=== PATIENT | female | born 1980 | race Caucasian/White ===

== ENCOUNTER → 2017-05-11 | Outpatient (CLI) | payer BC ==
[2014-03-28 22:20] VITALS: BP 113/76
--- NOTE | 2017-05-12 08:23 | RAD ---
Indication: Twisting injury, pain. Technique: 3 views of the right ankle are submitted for review. No comparison is available. Findings: There is no fracture or dislocation. There is no soft tissue swelling. Impression: Negative for fracture.
--- NOTE | 2017-05-12 08:24 | RAD ---
Indication: Twisting injury, pain. Attention to the fifth digit. Technique: 3 views of the right foot are submitted for review. No comparison is available. Findings: There is no fracture or dislocation. There is no soft tissue swelling. Impression: Negative for fracture.
== END | disposition home or self-care (01) ==
LOC: RAD 17:36
PROVIDERS: ATTEND General Practice
DX: S93.601A Unspecified sprain of right foot, initial encounter (principal); X58.XXXA Exposure to other specified factors, initial encounter; Y93.89 Activity, other specified; Y92.89 Other specified places as the place of occurrence of the external cause; Y99.8 Other external cause status
CPT/HCPCS: 73610; 73630

== ENCOUNTER 2018-06-22 10:30 | Emergency (ER) | payer BC ==
[~2018-06-22] VITALS: Ht 160 cm; Wt 52.7 kg
[2018-06-22] MEDS: IV NORMAL SALINE 1,000ML 1,000 ML IV SCH (11:22)
[2018-06-22] MEDS: MORPHINE SULFATE 4 MG/ML DISP.SYRIN. IV ONE (11:23)
[2018-06-22 11:29] LABS: BASO % 1 % (0-3); EOS % 0 % (0-3); HEMATOCRIT 46.5 % (36.0-47.0); HEMOGLOBIN 15.8 g/dL (12.0-15.5); LYMPH # 0.6 x10^3/uL (1.0-4.8); LYMPH % 6 % (24-48); MEAN CORPUSCULAR HEMOGLOBIN 32 pg (25-35); MEAN CORPUSCULAR HGB CONC 34 g/dL (31-37); MEAN CORPUSCULAR VOLUME 95 fL (79-100); MONO # 0.8 x10^3/uL (0.0-1.1); MONO % 8 % (0-9); NEUT # 8.4 x10^3uL (1.8-7.7); NEUT % 85 % (31-73); PLATELET COUNT 171 x10^3/uL (140-400); RED BLOOD COUNT 4.92 x10^6/uL (3.50-5.40); RED CELL DISTRIBUTION WIDTH 15.2 % (11.5-14.5); WHITE BLOOD COUNT 9.8 x10^3/uL (4.0-11.0)
[2018-06-22 11:35] LABS: AMPHETAMINE/METHAMPHETAMINE NEG (NEG); BARBITURATES NEG (NEG); BENZODIAZEPINES NEG (NEG); CANNABINOIDS POS (NEG); COCAINE NEG (NEG); METHADONE NEG (NEG); OPIATES POS (NEG); PHENCYCLIDINE NEG (NEG)
[2018-06-22 11:42] LABS: ALBUMIN/GLOBULIN RATIO 1.2 (1.0-1.7); CREATININE 1.1 mg/dL (0.6-1.0); GFR 56.2; POTASSIUM 3.1 mmol/L (3.5-5.1); PREG TEST PT QUAL NEGATIVE (NEG); TOTAL BILIRUBIN 1.4 mg/dL (0.2-1.0); TOTAL PROTEIN 7.4 g/dL (6.4-8.2)
[2018-06-22 11:43] LABS: CLARITY,URINE CLOUDY; COLOR,URINE BROWN
[2018-06-22 11:44] LABS: BACTERIA,URINE MANY /HPF (0-FEW); SQUAMOUS EPITHELIAL CELL,UR MOD /LPF; WBC,URINE >40 /HPF (0-4)
[2018-06-22] MEDS ORDERED: cefTRIAXone SODIUM 1 GM VIAL IV ONE (12:29)
[2018-06-22] MEDS ORDERED: IV NORMAL SALINE 50ML 50 ML ONE (12:29)
[2018-06-22] MEDS: POTASSIUM CHLORIDE 20 MEQ TABLET.ER. PO ONE (12:35)
[2018-06-22] MEDS ORDERED: CIPR250T30 PO (12:45)
[2018-06-22] MEDS ORDERED: HYDR-3165 PO (12:45)
[2018-06-22] MEDS ORDERED: NAPR-683 PO (12:45)
--- NOTE | 2018-06-22 12:45 | PHYS DOC ---
Past History Past Medical History: Depression, Endometriosis, Other Past Surgical History: Other Smoking: Cigarettes Alcohol Use: Occasionally Drug Use: Marijuana Adult General Chief Complaint Chief Complaint: ABDOMINAL PAIN HPI HPI Patient is a 37 year old female who presents with complaining of left lower quadrant pain for 4 days. Patient complaining of sudden onset of left lower quadrant pain 4 days ago after intercourse as a constant pain that getting during urination. Patient states the pain radiated to her back and rated her pain 10/10. Patient complaining of urinary frequency and dysuria with decrease of urine output. Patient also complaining of foul-smelling vaginal discharge without vaginal bleeding. Patient states her LMP was June 05 and is concern for possible . Patient denies vomiting, diarrhea, constipation, new sexual partner, history of the same problem. Review of Systems Review of Systems Constitutional: Denies fever , reports chills [] Eyes: Denies change in visual acuity, redness, or eye pain [] HENT: Denies nasal congestion or sore throat [] Respiratory: Denies cough or shortness of breath [] Cardiovascular: No additional information not addressed in HPI [] GI: Reports abdominal pain, nausea, denies vomiting, bloody stools or diarrhea [ ] : Reports dysuria and frequency Musculoskeletal: Denies back pain or joint pain [] Integument: Denies rash or skin lesions [] Neurologic: Denies headache, focal weakness or sensory changes [] Endocrine: Denies polyuria or polydipsia [] All other systems were reviewed and found to be within normal limits, except as documented in this note. Current Medications Current Medications Current Medications Medications (Trade) Dose Ordered Sig/[facility] Start Time Stop Time Status Last Admin Dose Admin Ceftriaxone Sodium 1 gm/ Sodium Chloride 50 ml @ 100 mls/hr 1X ONCE 06/22/18 12:30 06/22/18 12:59 Ceftriaxone Sodium (Rocephin) 1 gm STK-MED ONCE 06/22/18 12:29 06/22/18 12:31 DC Morphine Sulfate (Morphine 4mg Syringe) 4 mg 1X ONCE 06/22/18 11:15 06/22/18 11:16 DC 06/22/18 11:23 4 MG Potassium Chloride (Klor-Con) 40 meq 1X ONCE 06/22/18 12:30 06/22/18 12:31 DC Sodium Chloride 50 ml @ As Directed STK-MED ONCE 06/22/18 12:29 06/22/18 12:31 DC Allergies Allergies Allergies Coded Allergies Type Severity Reaction Last Updated Verified No Known Drug Allergies 03/28/14 No Physical Exam Physical Exam Constitutional: Well nourished, moderate distress, non-toxic appearance. [] HENT: Normocephalic, atraumatic, oropharynx dry, no oral exudates, nose normal. [] Eyes: PERRLA, EOMI, conjunctiva normal, no discharge. [] Neck: Normal range of motion, no tenderness, supple, no stridor. [] Cardiovascular: Tachycardia, no murmur [] Lungs & Thorax: Bilateral breath sounds clear to auscultation [] Abdomen: Bowel sounds normal, soft, no tenderness, left lower quadrant guarding , no masses, no pulsatile masses. 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 Skin: Warm, dry, no erythema, no rash. [] Back: No tenderness, left CVA tenderness. [] Extremities: No tenderness, no cyanosis, no clubbing, ROM intact, no edema. [] Neurologic: Alert and oriented X 3, normal motor function, normal sensory function, no focal deficits noted. [] Psychologic: Affect anxious, judgement normal, mood normal. [] Current Patient Data Vital Signs Vital Signs Date Time Temp Pulse Resp B/P (MAP) Pulse Ox O2 Delivery O2 Flow Rate FiO2 06/22/18 11:23 24 94 Room Air 06/22/18 10:30 98.5 126 Lab Results Laboratory Tests Test 06/22/18 10:40 06/22/18 11:15 Urine Collection Type Unknown Urine Color Brown Urine Clarity Cloudy Urine pH 5.0 Urine Specific [place] <=1.005 Urine Protein (NEG-TRACE) Urine Glucose (UA) mg/dL (NEG) Urine Ketones (Stick) mg/dL (NEG) Urine Blood (NEG) Urine Nitrite (NEG) Urine Bilirubin (NEG) Urine Urobilinogen Dipstick mg/dL (0.2 mg/dL) Urine Leukocyte Esterase (NEG) Urine RBC 3-5 /HPF (0-2) Urine WBC >40 /HPF (0-4) Urine Squamous Epithelial Cells Mod /LPF Urine Bacteria Many /HPF (0-FEW) Urine Mucus Slight /LPF Urine Opiates Screen Pos (NEG) Urine Methadone Screen Neg (NEG) Urine Barbiturates Neg (NEG) Urine Phencyclidine Screen Neg (NEG) Urine Amphetamine/Methamphetamine Neg (NEG) Urine Benzodiazepines Screen Neg (NEG) Urine Cocaine Screen Neg (NEG) Urine Cannabinoids Screen Pos (NEG) Urine Ethyl Alcohol Neg (NEG) White Blood Count 9.8 x10^3/uL (4.0-11.0) Red Blood Count 4.92 x10^6/uL (3.50-5.40) Hemoglobin 15.8 g/dL (12.0-15.5) H Hematocrit 46.5 % (36.0-47.0) Mean Corpuscular Volume 95 fL (79-100) Mean Corpuscular Hemoglobin 32 pg (25-35) Mean Corpuscular Hemoglobin Concent 34 g/dL (31-37) Red Cell Distribution Width 15.2 % (11.5-14.5) H Platelet Count 171 x10^3/uL (140-400) Neutrophils (%) (Auto) 85 % (31-73) H Lymphocytes (%) (Auto) 6 % (24-48) L Monocytes (%) (Auto) 8 % (0-9) Eosinophils (%) (Auto) 0 % (0-3) Basophils (%) (Auto) 1 % (0-3) Neutrophils # (Auto) 8.4 x10^3uL (1.8-7.7) H Lymphocytes # (Auto) 0.6 x10^3/uL (1.0-4.8) L Monocytes # (Auto) 0.8 x10^3/uL (0.0-1.1) Eosinophils # (Auto) 0.0 x10^3/uL (0.0-0.7) Basophils # (Auto) 0.0 x10^3/uL (0.0-0.2) Sodium Level 138 mmol/L (136-145) Potassium Level 3.1 mmol/L (3.5-5.1) L Chloride Level 99 mmol/L (98-107) Carbon Dioxide Level 28 mmol/L (21-32) Anion Gap 11 (6-14) Blood Urea Nitrogen 8 mg/dL (7-20) Creatinine 1.1 mg/dL (0.6-1.0) H Estimated GFR (Cockcroft-Gault) 56.2 BUN/Creatinine Ratio 7 (6-20) Glucose Level 100 mg/dL (70-99) H Lactic Acid Level 1.4 mmol/L (0.4-2.0) Calcium Level 9.0 mg/dL (8.5-10.1) Total Bilirubin 1.4 mg/dL (0.2-1.0) H Aspartate Amino Transferase (AST) 13 U/L (15-37) L Alanine Aminotransferase (ALT) 16 U/L (14-59) Alkaline Phosphatase 68 U/L (46-116) Total Protein 7.4 g/dL (6.4-8.2) Albumin 4.0 g/dL (3.4-5.0) Albumin/Globulin Ratio 1.2 (1.0-1.7) Lipase 51 U/L (73-393) L Serum Test, Qualitative Negative (NEG) Microbiology 06/22/18 Wet Prep - Final, Complete EKG EKG [] Radiology/Procedures Radiology/Procedures [] Course & Med Decision Making Course & Med Decision Making Pertinent Labs reviewed. (See chart for details) Evaluation of patient in ER showed 27-year-old female patient with complaining of vaginal discharge and urinary frequency and dysuria and left lower quadrant pain. Patient had tachycardia and anxiety without fever. Patient had more than 40 WBC in urine. Vaginal exam showed WBC. Treated with IV fluid, pain medication, Rocephin, oral potassium and felt better. Prescription for Cipro, [place] and Naprosyn was given and patient instructed to follow up with her primary care physician. discharge: I've spoken with the patient and/or caregivers. I've explained the patient's condition, diagnosis and treatment plan based on information available to me at this time. I've answered the patient's and/or caregivers questions and addressed any concerns. The patient and/or caregivers have a good understanding the patient's diagnosis, condition and treatment plan as can be expected at this point. Vital signs have been stabilized. The patient's condition is stable for discharge from the emergency department. The patient will pursue further outpatient evaluation with her primary care provider or other designated consulting physician as outlined in the discharge instructions. Patient and/or caregivers are agreeable to this plan of care and follow-up instructions have been explained in detail. The patient and/or caregivers have received these instructions in written format and expressed understanding of these discharge instructions. The patient and her caregivers are aware that if any significant change in condition or worsening of symptoms should prompt him to immediately return to this of the closest emergency department. If an emergent department is not readily available I would encourage him to call 911. Rupert Disclaimer Dragon Disclaimer This electronic medical record was generated, in whole or in part, using a voice recognition dictation system. Departure Departure: Impression: Primary Impression: Pyelonephritis Additional Impressions: Hypokalemia Vaginitis Urinary tract infection Marijuana abuse Tobacco abuse Tobacco abuse counseling Anxiety Dehydration Disposition: HOME, SELF-CARE (at 1236) Condition: IMPROVED Referrals: PRISCILA DEL REAL (PCP) Patient Instructions: Hypokalemia, Pyelonephritis, Adult Additional Instructions: Drink plenty of liquids Follow-up with your primary care physician in 3-5 days Return to ER if not getting better Scripts Hydrocodone Bit/Acetaminophen (NORCO 5-325 TABLET) 1 Each Tablet 1 TAB PO PRN Q6HRS PRN for PAIN, #10 TAB 0 Refills Prov: EVELYN DAWN MD 06/22/18 Naproxen (NAPROSYN) 500 Mg Tablet 500 MG PO BID for pain, #20 TAB Prov: EVELYN DAWN MD 06/22/18 Ciprofloxacin Hcl (CIPRO) 250 Mg Tablet 1 TAB PO BID for urinary tract infection, #14 TAB Prov: EVELYN DAWN MD 06/22/18 Problem Qualifiers EVELYN DAWN MD Jun 22, 2018 12:45
[2018-06-22 13:43] VITALS: BP 132/89
[2018-06-23 13:10] LABS: CHLAMYDIA PROBE Negative (Negative)
== END 2018-06-22 13:43 | disposition home or self-care (01) ==
LOC: ER 10:30
DX: N12 Tubulo-interstitial nephritis, not specified as acute or chronic (principal); E87.6 Hypokalemia; N76.0 Acute vaginitis; E86.0 Dehydration; F41.9 Anxiety disorder, unspecified; F12.10 Cannabis abuse, uncomplicated; F17.210 Nicotine dependence, cigarettes, uncomplicated; Z71.6 Tobacco abuse counseling
CPT/HCPCS: 36415; 80053; 80307; 81001; 83605; 83690; 84703; 85025; 87491; 87591; 96365; 96375; 99283; J0696; J2270; Q0111; 87086; 87186; J7030

== ENCOUNTER 2020-02-19 06:55 | Emergency (ER) | payer BC ==
[~2020-02-19] VITALS: Ht 160 cm; Wt 55.7 kg
[~2020-02-19 06:55] MED LIST: CIPR250T30 PO; HYDR-3165 PO; NAPR-683 PO
[2020-02-19] MEDS ORDERED: METOCLOPRAMIDE HCL 10 MG/2 ML VIAL. ONE (07:28)
[2020-02-19] MEDS ORDERED: FAMOTIDINE 20 MG/2 ML VIAL ONE (07:28)
[2020-02-19] MEDS ORDERED: FAMOTIDINE 20 MG/2 ML VIAL IVP ONE (07:30)
[2020-02-19] MEDS ORDERED: METOCLOPRAMIDE HCL 10 MG/2 ML VIAL. IVP ONE (07:30)
[2020-02-19] MEDS ORDERED: IV NORMAL SALINE 1,000ML 1,000 ML IV ONE (07:30)
--- NOTE | 2020-02-19 07:30 | PHYS DOC ---
Past History Past Medical History: Depression, Endometriosis, Other Past Surgical History: Other Smoking: Cigarettes Alcohol Use: Occasionally Drug Use: Marijuana General Adult EDM: Chief Complaint: ABDOMINAL PAIN HPI: HPI: 39-year-old female past medical history significant for endometriosis, hemorrhage and preeclampsia, presents to the ED with complaints of epigastric sharp abdominal pain worsening over the past 2 months with associated nausea and nonbloody nonbilious vomiting, food makes her symptoms worse. States she hasn't been able to eat much and both her mom/grandmother have had their gallbladders removed. States pain is similar to the pressure she felt when baby pressed up on her stomach. Drinks alcohol and smokes marijuana daily. No h/o covid. Last menstrual period was February 07. Relief with warm baths/hot showers. H/o urethral stent 2/2 frequent UTIs (has been removed). Review of Systems: Review of Systems: Constitutional: Denies fever or chills Eyes: Denies change in visual acuity HENT: Denies nasal congestion or sore throat Respiratory: Denies cough or shortness of breath or hemoptysis Cardiovascular: Denies chest pain or edema GI: Denies melena, hematemesis or diarrhea : Denies dysuria Musculoskeletal: Denies back pain or joint pain Integument: Denies rash Neurologic: Denies headache, focal weakness or sensory changes, neck stiffness Endocrine: Denies polyuria or polydipsia or hematuria Lymphatic: Denies swollen glands Psychiatric: Denies depression or anxiety Heart Score: Risk Factors: Risk Factors: DM, Current or recent (<one month) smoker, HTN, HLP, family history of CAD, obesity. Risk Scores: Score 0 - 3: 2.5% MACE over next 6 weeks - Discharge Home Score 4 - 6: 20.3% MACE over next 6 weeks - Admit for Clinical Observation Score 7 - 10: 72.7% MACE over next 6 weeks - Early Invasive Strategies Allergies: Allergies: Allergies Coded Allergies Type Severity Reaction Last Updated Verified No Known Drug Allergies 03/28/14 No Physical Exam: PE: Constitutional: Well developed, well nourished, no acute distress, non-toxic appearance, thin HENT: Normocephalic, atraumatic, Eyes: EOMI, conjunctiva normal, no discharge. [] Neck: Normal range of motion, supple, Cardiovascular: tachycardic and hypertensive, no murmur [] Lungs & Thorax: Bilateral breath sounds clear to auscultation [] Abdomen: Bowel sounds normal, soft, +murphys sign and epigastric ttp, no pain at mcburneys, no rovsing sign, no masses, no pulsatile masses. [] Skin: Warm, dry, no erythema, no rash. [] Back: No tenderness, no CVA tenderness. [] Extremities: No tenderness, no cyanosis, no clubbing, ROM intact, no edema. [] Neurologic: Alert and oriented X 3, normal motor function, normal sensory function, no focal deficits noted. [] Psychologic: Affect normal, judgement normal, mood normal. [] EKG: EKG: Sinus rhythm at 98 bpm, no axis deviation, normal intervals, no T wave inversions, no ST elevations or ST depressions Radiology/Procedures: Radiology/Procedures: IMAGING REPORT Signed PATIENT: ADINA PURCELL LACCOUNT: [id number] : 1980 LOCATION: ER AGE: 39 SEX: F EXAM STATUS: REG ER ORD. PHYSICIAN: JOCELINE VAZQUEZ DO REASON: ruq and epigastric pain, n/v PROCEDURE: ABDOMEN LTD CLINICAL HISTORY: Right upper quadrant and epigastric pain. Nausea, vomiting. COMPARISON: None available. TECHNIQUE: Limited ultrasound examination of the right upper quadrant of the abdomen was performed FINDINGS: Visualized portions of the pancreas are unremarkable. Liver: The liver measures 13.9 cm in length in the right mid clavicular line. The hepatic margin is smooth and the hepatic echogenicity is normal. In the left hepatic lobe, there is an echogenic 2.6 x 1.9 cm lesion which may represent a hemangioma. Portal venous flow is confirmed. Gallbladder/Biliary: The gallbladder is normal in appearance without evidence for cholelithiasis. There is no wall thickening or pericholecystic fluid. There is no pain with direct transducer pressure over the gallbladder.The common bile duct measures 0.5 cm. The right kidney measures 11.6 cm in bipolar length. No hydronephrosis. Normal renal cortical echotexture. Right upper pole renal cyst measures 7 mm. There is no free fluid in the subhepatic space. IMPRESSION: 1. Left hepatic lobe echogenic lesion is favored to represent hemangioma. 2. Gallbladder is sonographically normal. No evidence for acute cholecystitis. Electronically signed by: Layton Walker MD (02/19/2020 8:17 AM) [id number] DICTATED AND SIGNED BY: LAYTON WALKER MD DATE: 02/19/20816 CC: PRISCILA DEL REAL; JOCELINE VAZQUEZ DO ~ Course & Med Decision Making: Course & Med Decision Making Pertinent Labs and Imaging studies reviewed. (See chart for details) Concern for upper abdominal pain in the setting of nausea and nonbloody nonbilious vomiting. Patient presented tachycardic and hypertensive but improved with IV fluids and medications. Ultrasound shows no sonographic evidence of cholecystitis. Patient is afebrile, well appearing and in no distress. Labs with no leukocytosis, troponin, lipase and electrolytes within normal limits. Renal function is same as prior. hCG negative. Urinalysis w/no infection. Urine drug screen positive for thc. Broad differential given location of pain. Strict ED return precautions were given for severe worsening pain, dehydration or fever. Encouraged urgent outpatient follow-up with PMD and GI for endoscopy. Life-threatening processes were considered but are low suspicion at this time, given history and physical exam. Pt was educated on all prescription medications and adverse effects. All patient's questions were answered and pt was stable at time of discharge. Differential includes aortic dissection, aortic aneurysm, acute coronary syndrome, surgical abdomen (appendicitis, cholecystitis, ischemic bowel, strangulated hernia, etc), bowel obstruction or volvulus, bladder outlet obstruction, gastrointestinal bleeding, inflammatory bowel disease, peptic ulcer disease, sepsis, diverticular disease, ureterolithiasis, nephrolithiasis, ovarian or testicular torsion, ectopic , vaginal hemorrhage of infection I spoken with the patient and her caregivers. I explained the patient's condition, diagnoses and treatment plan based on the information available to me at this time. I have answered the patient and her caregiver's questions and addressed any concerns. The patient and her caregivers have a good understanding of patient's diagnosis, condition and treatment plan as can be expected at this point. Vital signs have been stable. Patient's condition is stable and appropriate for discharge from the emergency department. Patient will pursue further outpatient evaluation with primary care physician or other designated or consulting physician as outlined in the discharge instructions. The patient and/or caregivers are agreeable to this plan of care and follow-up instructions have been explained in detail. The patient and/or caregivers have received these instructions in written form and have expressed an understanding of the discharge instructions. The patient and/or caregivers are aware that any significant change of condition or worsening of symptoms should prompt immediate return to this or the closest emergency department or call to 911. Rupert Disclaimer: Dragon Disclaimer: This electronic medical record was generated, in whole or in part, using a voice recognition dictation system. Departure Departure: Impression: Primary Impression: Epigastric abdominal pain Additional Impression: Nausea & vomiting Disposition: 01 HOME/RESIDENCE PRIOR TO ADM Condition: STABLE Referrals: PRISCILA DEL REAL (PCP) Patient Instructions: Abdominal Pain, Marijuana Abuse-Brief, Nausea and Vomiting Additional Instructions: Gastroenterology [facility] Dr. Dick or Dr. Whitaker [address], [address], [place] [address] Scripts Metoclopramide Hcl (REGLAN) 10 Mg Tablet 1 TAB PO QID for nausea/vomiting for 7 Days, #28 TAB 0 Refills before food and bedtime Prov: JOCELINE VAZQUEZ DO 02/19/20 Famotidine (PEPCID) 20 Mg Tablet 1 TAB PO BID for epigastric pain for 14 Days, #28 TAB 0 Refills Prov: JOCELINE VAZQUEZ DO 02/19/20 Justification of Admission: Justification of Admission: Justification of Admission Dx: N/A JOCELINE VAZQUEZ DO Feb 19, 2020 07:30
[2020-02-19 07:58] LABS: BASO # 0.1 x10^3/uL (0.0-0.2); BASO % 1 % (0-3); EOS # 0.3 x10^3/uL (0.0-0.7); EOS % 3 % (0-3); HEMATOCRIT 49.8 % (36.0-47.0); HEMOGLOBIN 16.9 g/dL (12.0-15.5); LYMPH # 1.6 x10^3/uL (1.0-4.8); LYMPH % 20 % (24-48); MEAN CORPUSCULAR HEMOGLOBIN 34 pg (25-35); MEAN CORPUSCULAR HGB CONC 34 g/dL (31-37); MEAN CORPUSCULAR VOLUME 100 fL (79-100); MONO # 0.5 x10^3/uL (0.0-1.1); MONO % 7 % (0-9); NEUT # 5.7 x10^3uL (1.8-7.7); NEUT % 69 % (31-73); PLATELET COUNT 228 x10^3/uL (140-400); RED CELL DISTRIBUTION WIDTH 15.3 % (11.5-14.5); WHITE BLOOD COUNT 8.1 x10^3/uL (4.0-11.0)
[2020-02-19 08:08] LABS: CALCIUM 9.5 mg/dL (8.5-10.1); CREATININE 1.1 mg/dL (0.6-1.0); GFR 55.6; POTASSIUM 3.5 mmol/L (3.5-5.1)
--- NOTE | 2020-02-19 08:12 | EKG ---
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
[2020-02-19 08:16] LABS: ALBUMIN/GLOBULIN RATIO 1.1 (1.0-1.7); TOTAL BILIRUBIN 0.7 mg/dL (0.2-1.0); TOTAL PROTEIN 7.6 g/dL (6.4-8.2)
--- NOTE | 2020-02-19 08:20 | RAD ---
CLINICAL HISTORY: Right upper quadrant and epigastric pain. Nausea, vomiting. COMPARISON: None available. TECHNIQUE: Limited ultrasound examination of the right upper quadrant of the abdomen was performed FINDINGS: Visualized portions of the pancreas are unremarkable. Liver: The liver measures 13.9 cm in length in the right mid clavicular line. The hepatic margin is smooth and the hepatic echogenicity is normal. In the left hepatic lobe, there is an echogenic 2.6 x 1.9 cm lesion which may represent a hemangioma. Portal venous flow is confirmed. Gallbladder/Biliary: The gallbladder is normal in appearance without evidence for cholelithiasis. There is no wall thickening or pericholecystic fluid. There is no pain with direct transducer pressure over the gallbladder.The common bile duct measures 0.5 cm. The right kidney measures 11.6 cm in bipolar length. No hydronephrosis. Normal renal cortical echotexture. Right upper pole renal cyst measures 7 mm. There is no free fluid in the subhepatic space. IMPRESSION: 1. Left hepatic lobe echogenic lesion is favored to represent hemangioma. 2. Gallbladder is sonographically normal. No evidence for acute cholecystitis. Electronically signed by: Layton Webber MD (02/19/2020 8:17 AM) [id number]
[2020-02-19 09:46] VITALS: BP 134/92
[2020-02-19 10:01] LABS: BILIRUBIN,URINE NEG (NEG); CLARITY,URINE CLEAR; COLOR,URINE YELLOW; GLUCOSE,URINE NEG (NEG)
[2020-02-19 10:02] LABS: BACTERIA,URINE FEW /HPF (0-FEW); NITRITE,URINE NEG (NEG); SQUAMOUS EPITHELIAL CELL,UR MOD /LPF
[2020-02-19 10:06] LABS: BARBITURATES NEG (NEG); BENZODIAZEPINES NEG (NEG); CANNABINOIDS POS (NEG); COCAINE NEG (NEG); METHADONE NEG (NEG); OPIATES NEG (NEG); PHENCYCLIDINE NEG (NEG)
[2020-02-19 10:07] LABS: AMPHETAMINE/METHAMPHETAMINE NEG (NEG)
[2020-02-19] MEDS ORDERED: FAMO-63 PO (10:18)
[2020-02-19] MEDS ORDERED: METO10TA81 PO (10:18)
== END 2020-02-19 10:22 | disposition home or self-care (01) ==
LOC: ER 06:55
DX: R10.13 Epigastric pain (principal); R11.2 Nausea with vomiting, unspecified; F17.210 Nicotine dependence, cigarettes, uncomplicated; F12.10 Cannabis abuse, uncomplicated
CPT/HCPCS: 36415; 76705; 80053; 80307; 81001; 81025; 83690; 84484; 85025; 93005; 96361; 96374; 96375; 99285; G0480; J2765; J3490; J7030

== ENCOUNTER 2021-03-07 10:13 | Emergency (ER) | payer BC ==
[~2021-03-07] VITALS: Ht 162.6 cm; Wt 50.9 kg
[~2021-03-07 10:13] MED LIST changes: +FAMO-63 PO; +METO10TA81 PO
--- NOTE | 2021-03-07 10:29 | PHYS DOC ---
Past History Past Medical History: Depression, Endometriosis, Ovarian Cyst, Other Additional Past Medical Histor: "NEARLY BLED TO WHEN I HAD MY DAUGHTER" STATING SHE LOSS 700ML BLOOD Past Surgical History: Other Additional Past Surgical Histo: EXPLORATORY ABD LAP; URETHRAL STENT; D&C Smoking: Cigarettes Alcohol Use: Occasionally Drug Use: Marijuana General Adult EDM: Chief Complaint: SHORTNESS OF BREATH HPI: HPI: Patient is a 40-year-old female who presents to the emergency department for 3- day history of shortness of breath, generalized body aches, white productive cough and fever. Patient is also reporting midsternal chest tightness with cough. She denies any sick exposures. She is not vaccinated for COVID-19 or influenza. She is a current smoker. Patient denies any nausea, vomiting, belly pain. She has been taking Tylenol and ibuprofen at home for her fevers. She has no medical history. Review of Systems: Review of Systems: 14 body systems of the review of systems have been reviewed. See HPI for pertinent positive and negative responses, otherwise all other systems are negative, nonpertinent or noncontributory Allergies: Allergies: Allergies Coded Allergies Type Severity Reaction Last Updated Verified No Known Drug Allergies 02/19/20 No Physical Exam: PE: Constitutional: Well developed, well nourished, no acute distress, non-toxic appearance. [] HENT: Normocephalic, atraumatic, bilateral external ears normal, oropharynx moist, no oral exudates, nose normal. [] Eyes: PERRL, EOMI, conjunctiva normal, no discharge. [] Neck: Normal range of motion, no tenderness, supple, no stridor. [] Cardiovascular:Heart rate tachycardia rhythm, no murmur [] Lungs & Thorax: Bilateral breath sounds clear to auscultation [] Abdomen: Bowel sounds normal, soft, no tenderness, no masses, no pulsatile masses. [] Skin: Warm, dry, no erythema, no rash. [] Back: Normal range of motion Extremities: No tenderness, no cyanosis, no clubbing, ROM intact, no edema. [] Neurologic: Alert and oriented X 3, normal motor function, normal sensory function, no focal deficits noted. [] Psychologic: Anxious appearing, judgement normal, mood normal. [] Current Patient Data: Labs: Laboratory Tests Test 03/07/21 10:37 03/07/21 10:38 03/07/21 12:05 White Blood Count 10.1 x10^3/uL Red Blood Count 4.85 x10^6/uL Hemoglobin 15.8 g/dL Hematocrit 46.8 % Mean Corpuscular Volume 96 fL Mean Corpuscular Hemoglobin 33 pg Mean Corpuscular Hemoglobin Concent 34 g/dL Red Cell Distribution Width 16.1 % Platelet Count 208 x10^3/uL Neutrophils (%) (Auto) 76 % Lymphocytes (%) (Auto) 14 % Monocytes (%) (Auto) 9 % Eosinophils (%) (Auto) 1 % Basophils (%) (Auto) 1 % Neutrophils # (Auto) 7.6 x10^3uL Lymphocytes # (Auto) 1.4 x10^3/uL Monocytes # (Auto) 0.9 x10^3/uL Eosinophils # (Auto) 0.1 x10^3/uL Basophils # (Auto) 0.1 x10^3/uL Sodium Level 137 mmol/L Potassium Level 3.1 mmol/L Chloride Level 100 mmol/L Carbon Dioxide Level 22 mmol/L Anion Gap 15 Blood Urea Nitrogen 5 mg/dL Creatinine 0.8 mg/dL Estimated GFR (Cockcroft-Gault) 79.9 BUN/Creatinine Ratio 6 Glucose Level 111 mg/dL Calcium Level 9.6 mg/dL Total Bilirubin 1.1 mg/dL Aspartate Amino Transf (AST/SGOT) 14 U/L Alanine Aminotransferase (ALT/SGPT) 17 U/L Alkaline Phosphatase 69 U/L Troponin I Quantitative < 0.017 ng/mL Total Protein 7.9 g/dL Albumin 4.1 g/dL Albumin/Globulin Ratio 1.1 Influenza Type A (Rapid) Negative Influenza Type B (Rapid) Negative SARS-CoV-2 Antigen (Rapid) Negative Urine Collection Type Unknown Urine Color Red Urine Clarity Bloody Urine pH Urine Specific [place] Urine Protein Urine Glucose (UA) mg/dL Urine Ketones (Stick) mg/dL Urine Blood Urine Nitrite Urine Bilirubin Urine Urobilinogen Dipstick mg/dL Urine Leukocyte Esterase Urine RBC Tntc /HPF Urine WBC 1-4 /HPF Urine Squamous Epithelial Cells Occ /LPF Urine Bacteria 0 /HPF Urine Test Negative Current Medications Medications (Trade) Dose Ordered Sig/Dalton Route PRN Reason Start Time Stop Time Status Last Admin Dose Admin Iohexol (Omnipaque 350 Mg/ml) 100 ml 1X ONCE IV 03/07/21 10:45 03/07/21 10:46 DC 03/07/21 11:11 EKG: EKG: EKG performed by ER staff at 1034 shows sinus tachycardia with a rate of 109, no STEMI read by Dr. Valadez at 1042 Radiology/Procedures: Radiology/Procedures: []PROCEDURE: CT ANGIOGRAPHY CHEST CTA CHEST INDICATION: CHEST PAIN, PUI Comparison: None. TECHNIQUE: Following the uneventful administration of intravenous contrast, axial CT sections were obtained through the lungs and upper abdomen. Multiplanar reconstructions and MIP images were obtained. PQRS compliance statement: One or more of the following individualized dose reduction techniques were utilized for this examination: 1. Automated exposure control 2. Adjustment of the mA and/or kV according to patient size 3. Use of iterative reconstruction technique FINDINGS: Pulmonary arteries: No evidence of pulmonary thromboembolic disease Lungs and Airways: No pulmonary mass or consolidation. No abnormality of the central airways. Pleura: The pleural spaces are normal. Heart and Mediastinum: The visualized thyroid is normal in size and attenuation. No axillary or supraclavicular lymphadenopathy. No mediastinal, hilar or retrocrural lymphadenopathy. The heart and pericardium are within normal limits. The great vessels of the thorax are normal. Abdomen: Limited images through the upper abdomen show no abnormality of the visualized organs. Bones and Soft Tissues: The visualized bones and chest wall soft tissues are within normal limits. IMPRESSION: 1. No evidence of pulmonary thromboembolic disease. 2. No pulmonary mass or consolidation. 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 Risk Scores: Score 0 - 3: 2.5% MACE over next 6 weeks - Discharge Home Score 4 - 6: 20.3% MACE over next 6 weeks - Admit for Clinical Observation Score 7 - 10: 72.7% MACE over next 6 weeks - Early Invasive Strategies Course & Med Decision Making: Course & Med Decision Making Pertinent Labs and Imaging studies reviewed. (See chart for details) Patient is a 40-year-old female who presents to the emergency department for shortness of breath, generalized body aches, white productive cough and fever. Work-up in the ER consisted of blood work, urinalysis, EKG, CT angio as patient was noted to have tachycardia with shortness of breath and chest pain. Heart score 1. Patient CT of chest is negative. Unremarkable CBC. Negative troponin. Negative for influenza and COVID-19. Patient's potassium was 3.1, this was replaced in the emergency department. Patient's heart rate has decreased to a normal rate at 96. Patient was given fluids in the ER. Her work-up in the ER was unremarkable, patient advised to self isolate until she receives her Covid PCR test in approximately 2 days. She was advised to take Tylenol/ibuprofen for pain or fevers at home. Discharged on tessalon perles. She was advised to increase fluids and rest and follow-up with her primary care provider. Rupert Disclaimer: Rupert Disclaimer: This electronic medical record was generated, in whole or in part, using a voice recognition dictation system. Departure Departure: Impression: Primary Impression: Person under investigation for COVID-19 Additional Impression: Cough Disposition: 01 HOME / SELF CARE / HOMELESS Condition: GOOD Referrals: PRISCILA DEL REAL (PCP) Patient Instructions: Cough, Adult, Smoking Cessation Additional Instructions: You were seen in the emergency department today for cough, fevers and body aches. Your work-up in the ER was unremarkable. You were given fluids and potassium supplement as you are potassium level was low. Please make sure that you are eating potassium rich foods at home which consists of green leafy veget jacinto and bananas. Your rapid Covid test was negative. You are also negative for influenza. You have a Covid PCR test that is pending and you will be notified of those results via telephone when they become available in approximately 2 days, please self isolate until you receive these results. Increase your fluids and rest. You can take Tylenol or ibuprofen for any pain or fevers at home. For your cough you are being discharged home with a prescription called Ramila Monroe, take these as directed. You should follow- up with your primary care provider tomorrow regarding your ER visit. Please return to the emergency department if you develop chest pain, shortness of breath, palpitations, high fevers refractory to treatment, intractable nausea or vomiting, lightheadedness or any new or worsening concerns. EMERGENCY DEPARTMENT GENERAL DISCHARGE INSTRUCTIONS Thank you for coming to [facility] (ED) today and trusting us with you care. We trust that you had a positivie experience in our Emergency Department. If you wish to speak to the department management, you may call the director at [phone]. YOUR FOLLOW UP INSTRUCTIONS ARE FOLLOWS: 1. Do you have a private Doctor? If you do not have a private doctor, please ask for a resource list of physicians or clinics that may be able to assist you with follow up care. 2. The Emergency Physician has interpreted your x-rays. The X-Ray specialist will also review them. If there is a change in the findings, you will be notified in 48 hours when at all possible. 3. A lab test or culture has been done, your results will be reviewed and you will be notified if you need a change in treatment. ADDITIONAL INSTRUCTIONS AND INFORMATION: 1. Your care today has been supervised by a physician who is specially trained in emergency care. Many problems require more than one evaluation for a complete diagnosis and treatment. We recommend that you schedule your follow up appointment as recommended to ensure complete treatment of you illness or injury. If you are unable to obtain follow up care and continue to have a problem, or if your condition worsens, we recommend that you return to the ED. 2. We are not able to safely determine your condition over the phone nor are we able to give sound medical advice over the phone. For these safety reasons, if you call for medical advice we will ask you to come to the ED for further evaluation. 3. If you have any questions regarding these discharge instructions please call the ED at [phone]. SAFETY INFORMATION: In the interest of safety, wellness, and injury prevention; we encourage you to wear your sealbelt, if you smoke; quite smoking, and we encourage family to use a protective helmet for bicycling and other sporting events that present an increased risk for head injury. IF YOUR SYMPTOMS WORSEN OR NEW SYMPTOMS DEVELOP, OR YOU HAVE CONCERNS ABOUT YOUR CONDITION; OR IF YOUR CONDITION WORSENS WHILE YOU ARE WAITING FOR YOUR FOLLOW UP APPOINTMENT; EITHER CONTACT YOUR PRIMARY CARE DOCTOR, THE PHYSICIAN WHOSE NAME AND NUMBER YOU WERE GIVEN, OR RETURN TO THE ED IMMEDIATELY. Scripts Benzonatate (TESSALON PERLE) 100 Mg Capsule 1 CAP PO TID for cough for 3 Days, #9 CAP 0 Refills Prov: ADENIKE HILL APRN 03/07/21 ADENIKE HILL APRN Mar 07, 2021 10:29
[2021-03-07 11:04] LABS: BASO # 0.1 x10^3/uL (0.0-0.2); BASO % 1 % (0-3); EOS # 0.1 x10^3/uL (0.0-0.7); EOS % 1 % (0-3); HEMATOCRIT 46.8 % (36.0-47.0); HEMOGLOBIN 15.8 g/dL (12.0-15.5); LYMPH # 1.4 x10^3/uL (1.0-4.8); LYMPH % 14 % (24-48); MEAN CORPUSCULAR HEMOGLOBIN 33 pg (25-35); MEAN CORPUSCULAR HGB CONC 34 g/dL (31-37); MEAN CORPUSCULAR VOLUME 96 fL (79-100); MONO # 0.9 x10^3/uL (0.0-1.1); MONO % 9 % (0-9); NEUT # 7.6 x10^3uL (1.8-7.7); NEUT % 76 % (31-73); PLATELET COUNT 208 x10^3/uL (140-400); RED BLOOD COUNT 4.85 x10^6/uL (3.50-5.40); RED CELL DISTRIBUTION WIDTH 16.1 % (11.5-14.5); WHITE BLOOD COUNT 10.1 x10^3/uL (4.0-11.0)
[2021-03-07 11:08] LABS: CALCIUM 9.6 mg/dL (8.5-10.1); CREATININE 0.8 mg/dL (0.6-1.0); GFR 79.9; POTASSIUM 3.1 mmol/L (3.5-5.1)
[2021-03-07] MEDS: IOHEXOL 350 MG/ML 100 ML VIAL. IV ONE (11:11)
[2021-03-07 11:16] LABS: ALBUMIN 4.1 g/dL (3.4-5.0); ALBUMIN/GLOBULIN RATIO 1.1 (1.0-1.7); TOTAL BILIRUBIN 1.1 mg/dL (0.2-1.0); TOTAL PROTEIN 7.9 g/dL (6.4-8.2)
[2021-03-07 11:24] LABS: INFLUENZA A PATIENT NEGATIVE (NEGATIVE); INFLUENZA B PATIENT NEGATIVE (NEGATIVE)
--- NOTE | 2021-03-07 11:31 | RAD ---
CTA CHEST INDICATION: CHEST PAIN, PUI Comparison: None. TECHNIQUE: Following the uneventful administration of intravenous contrast, axial CT sections were ob tained through the lungs and upper abdomen. Multiplanar reconstructions and MIP images were obtained. PQRS compliance statement: One or more of the following individualized dose reduction techniques were utilized for this examinat ion: 1. Automated exposure control 2. Adjustment of the mA and/or kV according to patient size 3. Use of iterative reconstruction technique FINDINGS: Pulmonary arteries: No evidence of pulmonary thromboembolic disease Lungs and Airways: No pulmonary mass or consolidation. No abnormality of the central airways. Pleura: The pleural spaces are normal. Heart and Mediastinum: The visualized thyroid is normal in size and attenuation. No axillary or supra clavicular lymphadenopathy. No mediastinal, hilar or retrocrural lymphadenopathy. The heart and peric ardium are within normal limits. The great vessels of the thorax are normal. Abdomen: Limited images through the upper abdomen show no abnormality of the visualized organs. Bones and Soft Tissues: The visualized bones and chest wall soft tissues are within normal limits. IMPRESSION: 1. No evidence of pulmonary thromboembolic disease. 2. No pulmonary mass or consolidation. Electronically signed by: Jesus Murdock MD (03/07/2021 11:29 AM) [id number]
--- NOTE | 2021-03-07 12:02 | EKG ---
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
[2021-03-07 12:26] LABS: CLARITY,URINE BLOODY; COLOR,URINE RED
[2021-03-07 12:27] LABS: BACTERIA,URINE 0 /HPF (0-FEW); RBC,URINE TNTC /HPF (0-2); SQUAMOUS EPITHELIAL CELL,UR OCC /LPF; U PREG PATIENT NEGATIVE (NEG)
[2021-03-07 12:33] LABS: BARBITURATES NEG (NEG); BENZODIAZEPINES NEG (NEG); CANNABINOIDS POS (NEG); COCAINE NEG (NEG); METHADONE NEG (NEG); OPIATES NEG (NEG); PHENCYCLIDINE NEG (NEG)
[2021-03-07 12:35] LABS: AMPHETAMINE/METHAMPHETAMINE NEG (NEG)
[2021-03-07] MEDS ORDERED: BENZ100C PO (12:36)
[2021-03-07] MEDS: POTASSIUM CHLORIDE 20 MEQ TABLET.ER. PO ONE (12:45)
[2021-03-07 12:55] VITALS: BP 157/101
== END 2021-03-07 12:50 | disposition home or self-care (01) ==
LOC: ER 10:13
DX: R06.02 Shortness of breath (principal); R05.9 Cough, unspecified; Z20.822 Contact with and (suspected) exposure to COVID-19
CPT/HCPCS: 36415; 71275; 80053; 80307; 81001; 81025; 84484; 85025; 87426; 87804; 93005; 99285; C9803; Q9967; U0003

== ENCOUNTER 2021-03-11 10:58 | Emergency (ER) | payer BC, OTHER ==
[~2021-03-11] VITALS: Ht 162.6 cm; Wt 50.9 kg
[~2021-03-11 10:58] MED LIST changes: +BENZ100C PO
[2021-03-11] MEDS ORDERED: IV NORMAL SALINE 1,000ML 1,000 ML IV ONE (11:45)
[2021-03-11 11:52] LABS: CALCIUM 9.3 mg/dL (8.5-10.1); GFR 61.7; POTASSIUM 3.4 mmol/L (3.5-5.1)
--- NOTE | 2021-03-11 11:52 | EKG ---
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
[2021-03-11 11:55] LABS: BASO # 0.1 x10^3/uL (0.0-0.2); BASO % 1 % (0-3); EOS # 0.1 x10^3/uL (0.0-0.7); EOS % 1 % (0-3); HEMATOCRIT 44.9 % (36.0-47.0); LYMPH # 1.5 x10^3/uL (1.0-4.8); LYMPH % 16 % (24-48); MEAN CORPUSCULAR HEMOGLOBIN 33 pg (25-35); MEAN CORPUSCULAR HGB CONC 33 g/dL (31-37); MEAN CORPUSCULAR VOLUME 98 fL (79-100); MONO # 0.6 x10^3/uL (0.0-1.1); MONO % 7 % (0-9); NEUT # 7.2 x10^3uL (1.8-7.7); NEUT % 76 % (31-73); PLATELET COUNT 266 x10^3/uL (140-400); RED CELL DISTRIBUTION WIDTH 15.8 % (11.5-14.5); WHITE BLOOD COUNT 9.4 x10^3/uL (4.0-11.0)
[2021-03-11 12:06] LABS: ALBUMIN 3.9 g/dL (3.4-5.0); TOTAL BILIRUBIN 0.4 mg/dL (0.2-1.0); TOTAL PROTEIN 7.7 g/dL (6.4-8.2)
[2021-03-11] MEDS ORDERED: POTASSIUM CHLORIDE 20 MEQ TABLET.ER. PO ONE (12:45)
--- NOTE | 2021-03-11 12:59 | PHYS DOC ---
Past History Past Medical History: Depression, Endometriosis, Ovarian Cyst, Other Additional Past Medical Histor: "NEARLY BLED TO WHEN I HAD MY DAUGHTER" STATING SHE LOSS 700ML BLOOD Past Surgical History: Other Additional Past Surgical Histo: EXPLORATORY ABD LAP; URETHRAL STENT; D&C Smoking: Cigarettes Alcohol Use: Occasionally Drug Use: Marijuana General Adult EDM: Chief Complaint: HYPERVENTILATION HPI: HPI: Patient is a [age] year old [sex] who presents with [] Review of Systems: Review of Systems: Constitutional: Denies fever or chills Eyes: Denies redness or eye pain HENT: Denies nasal congestion or sore throat Respiratory: Denies cough or shortness of breath Cardiovascular: Denies chest pain or palpitations GI: Denies abdominal pain, nausea, or vomiting : Denies dysuria or hematuria Musculoskeletal: Denies back pain or joint pain Integument: Denies rash or skin lesions Neurologic: Denies headache, focal weakness or sensory changes Complete systems were reviewed and found to be within normal limits, except as documented in this note. Current Medications: Current Meds: Current Medications Medications (Trade) Dose Ordered Sig/Dalton Start Time Stop Time Status Last Admin Dose Admin Lorazepam (Ativan Inj) 1 mg 1X ONCE 03/11/21 11:45 03/11/21 11:59 DC 03/11/21 12:01 1 MG Potassium Chloride (Klor-Con) 40 meq 1X ONCE 03/11/21 12:45 03/11/21 12:46 DC 03/11/21 12:50 40 MEQ Sodium Chloride 1,000 ml @ 1,000 mls/hr 1X ONCE 03/11/21 11:45 03/11/21 12:44 DC 03/11/21 12:00 1,000 MLS/HR Allergies: Allergies: Allergies Coded Allergies Type Severity Reaction Last Updated Verified No Known Drug Allergies 03/11/21 No Physical Exam: PE: Constitutional: Well developed, well nourished, no acute distress, non-toxic appearance HENT: Normocephalic, atraumatic Eyes: PERRL, EOMI, conjunctiva normal, no discharge Neck: Normal range of motion, no tenderness, supple Lungs & Thorax: No respiratory distress, equal chest rise and fall Abdomen: Soft, no tenderness Skin: Warm, dry, no erythema, no rash Back: No tenderness, no CVA tenderness Extremities: No tenderness, ROM intact, no edema Neurologic: Alert and oriented X 3, normal motor function, normal sensory function, no focal deficits noted Psychologic: Affect normal, judgment normal Current Patient Data: Labs: Laboratory Tests Test 03/11/21 11:21 White Blood Count 9.4 x10^3/uL (4.0-11.0) Red Blood Count 4.60 x10^6/uL (3.50-5.40) Hemoglobin 15.0 g/dL (12.0-15.5) Hematocrit 44.9 % (36.0-47.0) Mean Corpuscular Volume 98 fL (79-100) Mean Corpuscular Hemoglobin 33 pg (25-35) Mean Corpuscular Hemoglobin Concent 33 g/dL (31-37) Red Cell Distribution Width 15.8 % (11.5-14.5) H Platelet Count 266 x10^3/uL (140-400) Neutrophils (%) (Auto) 76 % (31-73) H Lymphocytes (%) (Auto) 16 % (24-48) L Monocytes (%) (Auto) 7 % (0-9) Eosinophils (%) (Auto) 1 % (0-3) Basophils (%) (Auto) 1 % (0-3) Neutrophils # (Auto) 7.2 x10^3uL (1.8-7.7) Lymphocytes # (Auto) 1.5 x10^3/uL (1.0-4.8) Monocytes # (Auto) 0.6 x10^3/uL (0.0-1.1) Eosinophils # (Auto) 0.1 x10^3/uL (0.0-0.7) Basophils # (Auto) 0.1 x10^3/uL (0.0-0.2) Sodium Level 140 mmol/L (136-145) Potassium Level 3.4 mmol/L (3.5-5.1) L Chloride Level 100 mmol/L (98-107) Carbon Dioxide Level 24 mmol/L (21-32) Anion Gap 16 (6-14) H Blood Urea Nitrogen 5 mg/dL (7-20) L Creatinine 1.0 mg/dL (0.6-1.0) Estimated GFR (Cockcroft-Gault) 61.7 BUN/Creatinine Ratio 5 (6-20) L Glucose Level 103 mg/dL (70-99) H Calcium Level 9.3 mg/dL (8.5-10.1) Total Bilirubin 0.4 mg/dL (0.2-1.0) Aspartate Amino Transferase (AST) 20 U/L (15-37) Alanine Aminotransferase (ALT) 23 U/L (14-59) Alkaline Phosphatase 69 U/L (46-116) Creatine Kinase 101 U/L (26-192) Creatine Kinase MB (Mass) 1.1 ng/mL (0.0-3.6) Creatine Kinase MB Relative Index 1.1 % (0-4) Troponin I Quantitative < 0.017 ng/mL (0-0.055) DH-Ybx-[id number]-Type Natriuretic Peptide 26 pg/mL (0-124) Total Protein 7.7 g/dL (6.4-8.2) Albumin 3.9 g/dL (3.4-5.0) Albumin/Globulin Ratio 1.0 (1.0-1.7) Vital Signs: Vital Signs Date Time Temp Pulse Resp B/P (MAP) Pulse Ox O2 Delivery O2 Flow Rate FiO2 03/11/21 12:52 115 20 149/99 (116) 100 Room Air 03/11/21 11:00 97.7 EKG: EKG: @1133 Sinus tachycardia at 110bpm, NO ST elevation, QRS 82ms, QT/QTc 350/479ms Radiology/Procedures: Radiology/Procedures: [] Heart Score: C/O Chest Pain: N/A Course & Med Decision Making: Course & Med Decision Making Pertinent Lab studies reviewed. (See chart for details) Patient stable for discharge with outpatient follow-up with PCP. Discussed findings and plan with patient, who acknowledges understanding and agreement. Rupert Disclaimer: Rupert Disclaimer: This electronic medical record was generated, in whole or in part, using a voice recognition dictation system. Departure Departure: Impression: Primary Impression: Bronchitis Disposition: HOME / SELF CARE / HOMELESS Condition: STABLE Referrals: PRISCILA DEL REAL (PCP) Patient Instructions: Acute Bronchitis, [id number] Additional Instructions: You have been tested for or diagnosed with COVID-19. It is an infection caused by a new type of coronavirus. COVID-19 will cause cold-like or mild flu symptoms in most. It can cause more severe symptoms like problems breathing in some. There is no treatment for COVID-19. The body will clear the infection over time. Self-care will help to ease discomfort. Steps to Take: Self-Care Rest as needed. Healthy habits may help you feel better. Steps include: Choose healthy foods including fruits and vegetables. Drink water throughout the day. Get plenty of sleep each night. If you smoke, try to quit. It may ease breathing. Avoid alcohol. Keep Others Healthy The virus can spread to others. Droplets are released every time you sneeze or cough. The droplets can get into the mouth, nose, or eyes of people near you and lead to infection. To lower the chances of spreading COVID-19 to others: Stay at home until your doctor has said it is safe to leave. If you tested positive this will mean staying isolated until both of the following are true: At least 7 days have passed since the start of illness. You are free of fever for at least 72 hours without the use of medicine. During this time: - Avoid public areas, events, or transportation. Do not return to work or school until your doctor has said it is safe to do so. - Call ahead if you need to go to a medical center. Let them know you may have COVID-19. It will help them guide you where to go. They may also ask you to wear a facemask when you come to the office. - If you call for emergency medical services, let them know you may have COVID- 19. While at home: - Try to avoid close contact with others. Stay about 6 feet away. - If possible, spend most of your time in a separate room from others. - Use a face mask if you will be in close contact with others such as sharing a room or vehicle. - Have someone wipe down common surfaces in the home. Use household psychologist social every day on areas like doorknobs, counters, or sinks. - Cough or sneeze into a tissue. Throw the tissue away right after use. If a tissue is not available, cough or sneeze into your elbow. - Wash your hands often. Wash them after sneezing or coughing. Use soap and water and wash for at least 20 seconds. Alcohol based hand vehicle and equipment cleaner can be used if soap and water is not available. - Do not prepare food for others. Avoid sharing personal items like forks, spoons, or toothbrushes. - Avoid close contact with pets while you are sick. There is no evidence of the virus passing to pets. This is a safety step until more is known about this virus. Isolation can be frustrating. Social interaction can help. Keep in touch with friends and family through phone and tech options. You can still interact with others in your home, just keep a safe distance of about 6 feet. Follow-up: Your doctors office will check in with you to see if there are any changes in your health. You may be asked to keep track of symptoms to share with them. They will also let you know when you are clear to be in public again. Problems to Look Out For: Contact your doctor if your recovery is not going as you expect. Get emergency care if you have problems such as: - Trouble breathing - Nonstop chest pain or pressure - Changes in awareness, confusion, or problems waking - Lips or face have bluish color - Worsening of symptoms If you think you have an emergency, call for emergency medical services right away. As taken from [facility] Scripts Albuterol Sulfate (PROAIR HFA INHALER) 8.5 Gm Hfa.aer.ad 2 PUFF IH PRN Q4-6HRS PRN for SHORTNESS OF BREATH, #1 INHALER 0 Refills Prov: CAITLIN SHAFFER DO 03/11/21 Prednisone (PREDNISONE) 20 Mg Tablet 2 TAB PO DAILY for Bronchitis, #8 TAB Start this prescription tomorrow, Wednesday03/12/21 Prov: CAITLIN SHAFFER DO 03/11/21 Azithromycin (AZITHROMYCIN TABLET) 250 Mg Tablet 1 PKG PO UD for bronchitis, #6 TAB Take 2 tablets today and then one tablet every day thereafter for the next 4 days Prov: CAITLIN SHAFFER DO 03/11/21 CAITLIN SHAFFER DO Mar 11, 2021 12:59
[2021-03-11] MEDS ORDERED: ALBU2.5V8 IH (13:09)
[2021-03-11] MEDS ORDERED: PRED20TA PO (13:09)
[2021-03-11] MEDS ORDERED: AZIT250T6 PO (13:09)
[2021-03-11] MEDS ORDERED: DEXAMETHASONE 4 MG TABLET PO ONE (13:15)
[2021-03-11 13:35] VITALS: BP 154/102
== END 2021-03-11 13:36 | disposition home or self-care (01) ==
LOC: ER 10:58
DX: J40 Bronchitis, not specified as acute or chronic (principal); F32.9 Major depressive disorder, single episode, unspecified; F17.210 Nicotine dependence, cigarettes, uncomplicated; Z20.822 Contact with and (suspected) exposure to COVID-19
CPT/HCPCS: 36415; 80053; 82553; 83880; 84484; 85025; 93005; 96361; 96374; 99284; C9803; J2060; J7030; J8540; U0003